=== PATIENT | male | born 1970 | race Caucasian/White ===

== ENCOUNTER 2017-12-13 00:26 | Observation (INO) | payer SELFPAY ==
[2017-12-13] VITALS (288 sets, daily range): BP systolic 133–148; BP diastolic 86–95; PULSE 93–111; TEMP 97.6–99.7; O2SAT 91–99
[~2017-12-13] VITALS: Ht 167.6 cm; Wt 99.6 kg
[2017-12-13 01:26] LABS: PROTHROMBIN TIME 11.9 SECONDS (9.7-12.8)
[2017-12-13 01:32] LABS: HEMATOCRIT 37.4 % (42.0-52.0); MEAN CELL VOLUME 89 fl (80.0-100.0); MEAN CORPUSCULAR HEMOGLOBIN 31 pg (27.0-31.0); MEAN CORPUSCULAR HGB CONC 35 g/dl (33.0-37.0); PLATELET COUNT 261 K/mm3 (130-400); RED BLOOD COUNT 4.21 M/mm3 (4.20-5.60)
[2017-12-13 01:37] LABS: ALBUMIN 3.4 gm/dL (3.5-5.0); BILIRUBIN,TOTAL 0.4 mg/dL (0.0-1.0); CALCIUM 7.9 mg/dL (8.4-10.2); CREATININE, serum 1.07 mg/dL (0.66-1.25); POTASSIUM 3.5 mmol/L (3.4-5.0); TOTAL PROTEIN 6.4 gm/dL (6.4-8.2)
[2017-12-13 02:29] LABS: COLLECTION METHOD CLEAN CATCH
[2017-12-13 02:42] LABS: MUCOUS Present /lpf; PH 5 (5-8); SQUAMOUS EPITHELIAL None Seen /hpf; URINE APPEARANCE Clear; URINE BACTERIA None Seen /hpf; URINE BILIRUBIN Negative (NEGATIVE); URINE BLOOD 2+ (NEGATIVE); URINE COLOR Straw; URINE GLUCOSE 2+ (NEGATIVE); URINE KETONE Negative (NEGATIVE); URINE LEUKOCYTE ESTERASE Negative (NEGATIVE); URINE NITRATE Negative (NEGATIVE); URINE PROTEIN(semi-quant) Negative (NEGATIVE); URINE UROBILINOGEN Negative (NEGATIVE); URINE WBC 0-2 /hpf
[2017-12-13 05:45] LABS: BASO % 0.3 % (0.0-2.0); EOS % 0.1 % (0-4.0); GRAN # 10.7 (1.4-6.5); GRAN % 84.5 % (42.2-75.2); LYMPH # 1.1 (1.2-3.4); LYMPH % 8.8 % (20.0-51.0); MEAN CELL VOLUME 87 fl (80.0-100.0); MEAN CORPUSCULAR HEMOGLOBIN 30 pg (27.0-31.0); MEAN CORPUSCULAR HGB CONC 35 g/dl (33.0-37.0); MEAN PLATELET VOLUME 10.6 fl (7.4-10.4); MONO # 0.7 (0.1-0.6); MONO % 5.4 % (1.7-9.3); PLATELET COUNT 217 K/mm3 (130-400); RED BLOOD COUNT 3.97 M/mm3 (4.20-5.60)
[2017-12-13 05:55] LABS: CALCIUM 7.5 mg/dL (8.4-10.2); CREATININE, serum 0.89 mg/dL (0.66-1.25); POTASSIUM 3.8 mmol/L (3.4-5.0)
[2017-12-13 05:56] LABS: BAND 9 % (0-10); LYMPHOCYTE 62 % (20.0-51.0); NEUTROPHILS 29 % (42.0-75.2); PLATELET ESTIMATE NORMAL (NORMAL); TOXIC GRANULATION PRESENT
[2017-12-13 06:07] LABS: HEMATOCRIT 34.7 % (42.0-52.0)
[2017-12-13] MEDS ORDERED: NORVASC 5MG5 MG/TAB PO (16:08)
[2017-12-13] MEDS ORDERED: LOSARTAN POTASSIUM (16:13)
[2017-12-14 04:33] VITALS: BP 129/88; PULSE 99; TEMP 98.7
[2017-12-14 07:35] VITALS: BP 155/92; PULSE 106; TEMP 99.5
[2017-12-14 11:25] VITALS: BP 147/98; PULSE 93; TEMP 98.6
== END 2017-12-14 12:10 | disposition home or self-care (01) ==
LOC: COL.ER 00:26 → EDBD 00:27 → COL.ER 00:27 → SURG 02:20 → ICU 02:20 → SURG 14:14
PROVIDERS: Emergency Medicine; Surgery
DX: S22.41XA Multiple fractures of ribs, right side, initial encounter for closed fracture (principal); V49.59XA Passenger injured in collision with other motor vehicles in traffic accident, initial encounter; Y93.84 Activity, sleeping; Y92.411 Interstate highway as the place of occurrence of the external cause; S06.0X9A Concussion with loss of consciousness of unspecified duration, initial encounter; S00.01XA Abrasion of scalp, initial encounter; S60.312A Abrasion of left thumb, initial encounter; S69.92XA Unspecified injury of left wrist, hand and finger(s), initial encounter; M25.511 Pain in right shoulder; I10 Essential (primary) hypertension; E11.9 Type 2 diabetes mellitus without complications
CPT/HCPCS: A9284; G0378; J0690; J1650; J1815; J2270; J2405; J3010; J7030; J7120

== ENCOUNTER → 2018-01-11 | Outpatient (CLI) | payer SELFPAY ==
[~2018-01-11] MED LIST: LOSARTAN POTASSIUM; NORVASC 5MG5 MG/TAB PO
[2018-01-11 15:25] LABS: BILIRUBIN,TOTAL 0.3 mg/dL (0.0-1.0); CALCIUM 9.4 mg/dL (8.4-10.2); CREATININE, serum 0.76 mg/dL (0.66-1.25); POTASSIUM 4.3 mmol/L (3.4-5.0); TOTAL PROTEIN 7.6 gm/dL (6.4-8.2)
== END ==
LOC: ZCOL.LAB 15:05
DX: R94.5 Abnormal results of liver function studies (principal)

== ENCOUNTER → 2018-08-02 | Outpatient (CLI) | payer SELFPAY ==
[~2018-08-02] MED LIST changes: +GLIPIZIDE5 MG PO; +HCTZ 25MG25 MG PO; +HIGH CHOLESTEROL; +K-DUR 2020 MEQ PO; +LISINOPRIL/HCTZ1 TA1 PO; +LISINOPRIL10 MG PO; +METFORMIN500 MG PO; +NORVASC2.5 MG PO; +NORVASC5 MG PO; +PRAVACHOL 20MG20 MG PO; +PRAVASTATIN20 MG PO
[2018-08-02 13:36] LABS: HEMATOCRIT 44.3 % (42.0-52.0); HEMOGLOBIN 15.5 g/dl (13.5-18.0)
[2018-08-02 13:59] LABS: BILIRUBIN,TOTAL 0.3 mg/dL (0.0-1.0); CALCIUM 8.9 mg/dL (8.4-10.2); CHOLESTEROL RISK RATIO 5.4; CREATININE, serum 0.8 mg/dL (0.66-1.25); POTASSIUM 4.3 mmol/L (3.4-5.0)
== END ==
LOC: ZLAB.FHCC 10:39
PROVIDERS: Internal Medicine
DX: E11.9 Type 2 diabetes mellitus without complications (principal); I10 Essential (primary) hypertension

== ENCOUNTER → 2018-09-01 | Outpatient (CLI) | payer SELFPAY | LOC: SUN.DIA 08-15 11:21 | DX: E11.9 Type 2 diabetes mellitus without complications (principal); I10 Essential (primary) hypertension | CPT/HCPCS: G0108 ==

== ENCOUNTER → 2018-09-14 | Outpatient (CLI) | payer SELFPAY | LOC: SUN.DIA 09-13 16:31 | DX: E11.9 Type 2 diabetes mellitus without complications (principal); I10 Essential (primary) hypertension | CPT/HCPCS: G0108 ==

== ENCOUNTER 2019-10-02 18:02 | Emergency (ER) | payer SELFPAY ==
[~2019-10-02] VITALS: Ht 175.3 cm; Wt 100.0 kg
[2019-10-02 18:14] VITALS: BP 121/81; TEMP 99.3
[2019-10-02] MEDS ORDERED: COZAAR100 MG PO (19:50)
[2019-10-02] MEDS ORDERED: GLUMETZA500 MG PO (19:51)
[2019-10-02 20:37] LABS: STREP SCREEN POSITIVE
[2019-10-02] MEDS ORDERED: AMOXICILLIN 50500 MG PO (21:00)
[2019-10-02 21:34] VITALS: PULSE 108
== END 2019-10-02 21:34 | disposition home or self-care (01) ==
LOC: COL.ER 18:02
PROVIDERS: Nurse Practitioner
DX: J02.0 Streptococcal pharyngitis (principal); E11.9 Type 2 diabetes mellitus without complications; I10 Essential (primary) hypertension; F17.210 Nicotine dependence, cigarettes, uncomplicated; Z79.84 Long term (current) use of oral hypoglycemic drugs